=== PATIENT | male | born 1955 | race African-American/Black ===

== ENCOUNTER 2021-06-08 16:37 | Emergency (ER) | payer OTHER, SELFPAY ==
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
--- NOTE | 2021-06-08 19:19 | RAD REPORT ---
EXAM DESCRIPTION: Tabitha Single View06/08/2021 7:12 pm CLINICAL HISTORY: Chest pain COMPARISON: none FINDINGS: The lungs appear clear of acute infiltrate. The heart is mildly enlarged IMPRESSION: No acute abnormalities displayed
--- NOTE | 2021-06-08 19:22 | RAD REPORT ---
EXAM DESCRIPTION: RAD - Shoulder Left 2 View - 06/08/2021 7:12 pm CLINICAL HISTORY: Left shoulder pain FINDINGS: No fracture or dislocation is seen. Marked osteoarthritis glenohumeral joint. Bony density adjacent to the chromium process extending superiorly presumably is chronic
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
[2021-06-08 20:25] VITALS: TEMP 97.6
[2021-06-08 20:29] VITALS: BP 145/106; O2SAT 96
== END 2021-06-08 20:18 | disposition home or self-care (01) ==
LOC: ER 16:37
DX: S16.1XXA Strain of muscle, fascia and tendon at neck level, initial encounter (principal); S39.012A Strain of muscle, fascia and tendon of lower back, initial encounter; S80.02XA Contusion of left knee, initial encounter; V49.50XA Passenger injured in collision with unspecified motor vehicles in traffic accident, initial encounter; F17.210 Nicotine dependence, cigarettes, uncomplicated
CPT/HCPCS: 71045; 72125; 72131; 99283